=== PATIENT | female | born 1960 | race Caucasian/White ===

== ENCOUNTER 2016-11-12 15:39 | Emergency (ER) | payer MEDICARE, MEDICAID ==
--- NOTE | 2016-11-12 16:05 | ER Document Report ---
ED General - General Chief Complaint: Ear Pain Stated Complaint: EAR PAIN/DRAINAGE, ANKLE PAIN Time Seen by Provider: 11/12/16 15:57 Notes: Patient is a 56 year old female who presents to the ED complaining of bilateral ear drainage and pain for 2 weeks and bilateral ankle pain and swelling. She states her ears have been draining clear fluid without inner ear pain nor hearing loss, headaches. PCP told her it was allergies but she has not been taking antihistamines. Regarding her ankles, she states they have been swollen and painful since she has been helping her elderly father in the hospital and been walking more than her normal PMH: hyperthyroidism with nodules,having her thyroidectomy at the end of the month current smoker TRAVEL OUTSIDE OF THE [place] IN LAST 30 DAYS: No - Related Data Allergies/Adverse Reactions: No Known Allergies Allergy (Unverified 11/12/16 15:43) Past Medical History - Social History Smoking Status: Current Every Day Smoker Family History: Reviewed & Not Pertinent Renal/ Medical History: Denies: Hx Peritoneal Dialysis Review of Systems - Review of Systems Constitutional: No symptoms reported EENT: See HPI Cardiovascular: No symptoms reported Respiratory: No symptoms reported Musculoskeletal: See HPI -: Yes All other systems reviewed and negative Physical Exam - Vital signs Vitals: Temp Pulse Resp BP Pulse Ox 98.1 F 111 H 20 121/51 L 97 11/12/16 15:46 11/12/16 15:46 11/12/16 15:46 11/12/16 15:46 11/12/16 15:46 - Notes Notes: PHYSICAL EXAM GENERAL: Alert, interacts well. HEAD: Normocephalic, atraumatic. EYES: Pupils equal, round, and reactive to light. Extraocular movements intact. ENT: Tympanic membrane bilaterally normla without bulging, redness or perforation. Bilateral ear canals with clear drainage and mild edema. Positive for pinna tendnerness and movement. Oral mucosa moist, tongue midline. Uvula midline. Airway patent. No evidence of tonsillar enlargement, peritonsillar abscess, retropharyngeal abscess. NECK: Full range of motion. Supple. Trachea midline. LUNGS: Clear to auscultation bilaterally, no wheezes, rales, or rhonchi. No respiratory distress. HEART: Regular rate and rhythm. No murmurs, gallops, or rubs. EXTREMITIES: Bilateral ankles with swelling no deformity or tenderness. Moves all 4 extremities spontaneously. radial and dorsalis pedis pulses 2/4 bilaterally. No cyanosis. NEUROLOGICAL: Alert and oriented x4. Normal speech. PSYCH: Normal affect, normal mood. SKIN: Warm, dry, normal turgor. No rashes or lesions noted. Course - Re-evaluation Re-evalutation: 11/12/16 17:06 Patient is a 56-year-old female who is hemodynamically stable, no acute distress afebrile. Presentation today for her ears is consistent with an otitis externa. Will discharge home on a eardrop with hydrocortisone to help with the swelling and patient educated on taking antihistamines to help with the drainage. Regarding her ankles evidence of osteopenia noted on bilateral x- rays. Discussed with patient to continue taking Aleve keeping them elevated and to follow-up with her primary care provider. DEXA scan. Also discussed with her that this could possibly related to her hyperthyroidism. Patient is stable for discharge home patient agrees with plan. - Vital Signs Vital signs: Temp Pulse Resp BP Pulse Ox 98.1 F 111 H 20 121/51 L 97 11/12/16 15:46 11/12/16 15:46 11/12/16 15:46 11/12/16 15:46 11/12/16 15:46 - Diagnostic Test Radiology reviewed: Image reviewed, Reports reviewed Discharge - Discharge Clinical Impression: Ankle pain Qualifiers: Chronicity: chronic Laterality: bilateral Qualified Code(s): M25.571 - Pain in right ankle and joints of right foot Otitis externa Qualifiers: Otitis externa type: unspecified type Chronicity: acute Laterality: bilateral Qualified Code(s): H60.503 - Unspecified acute noninfective otitis externa, bilateral Condition: Good Disposition: HOME, SELF-CARE Instructions: Use of Ear Drops ([facility]), Ice & Elevation ([facility]), Osteoporosis ([facility]) , Otitis Externa ([facility]) Additional Instructions: Please follow up with your primary care for possible DEXA/bone density scan
--- NOTE | 2016-11-12 16:41 | RADIOLOGY REPORT (SQ) ---
EXAM DESCRIPTION: ANKLE BILATERAL 3 VIEWS MIN COMPLETED DATE/TIME: 11/12/2016 4:28 pm REASON FOR STUDY: pain and swelling COMPARISON: None. NUMBER OF VIEWS: Three views right ankle, three views left ankle. LIMITATIONS: None. FINDINGS: Right ankle: Mild osteopenia. Maintained mortise. No large effusion. No fracture or fo reign body. Left ankle: Mild osteopenia. Maintained mortise. No evidence of effusion. No fracture or foreign body. OTHER: No other significant finding. IMPRESSION: No evidence of ankle fracture bilaterally. Findings as above. TECHNICAL DOCUMENTATION: JOB ID: [id number]
[2016-11-12] MEDS ORDERED: NAPROXEN 250 MG TABLET PO ONE (16:56)
[2016-11-12] MEDS ORDERED: NEOMY SULF/POLYMYX B SULF/HC OTIC SUSP 10 ML AU ONE (16:56)
[2016-11-12 17:21] VITALS: BP 118/64
== END 2016-11-12 17:21 | disposition home or self-care (01) ==
LOC: ER 15:39
DX: H60.503 Unspecified acute noninfective otitis externa, bilateral (principal); M25.571 Pain in right ankle and joints of right foot; M25.572 Pain in left ankle and joints of left foot; H92.03 Otalgia, bilateral; F17.200 Nicotine dependence, unspecified, uncomplicated
CPT/HCPCS: 99283; 73610; J3490; A9270

== ENCOUNTER → 2017-04-26 | Outpatient (CLI) | payer MEDICARE, MEDICAID | LOC: WI 09:52 | PROVIDERS: ATTEND Family Medicine | DX: Z12.31 Encounter for screening mammogram for malignant neoplasm of breast (principal) | CPT/HCPCS: 77067 ==